=== PATIENT | male | born 1960 | race Caucasian/White ===

== ENCOUNTER 2020-06-17 08:05 | Emergency (ER) | payer BC ==
[2020-06-17] MEDS ORDERED: METOCLOPRAMIDE 10 MG/2mL INJ ONE (08:50)
[2020-06-17] MEDS ORDERED: KETOROLAC 30 MG/ML INJ ONE (08:50)
[2020-06-17] MEDS ORDERED: NA CHLORIDE 0.9% 1,000 ML ONE (08:50)
[2020-06-17] MEDS ORDERED: DIPHENHYDRAMINE 50 MG/ML VIAL ONE (08:50)
--- NOTE | 2020-06-17 09:18 | RAD REPORT ---
EXAM DESCRIPTION: CT - Head Brain Wo Cont - 06/17/2020 8:47 am CLINICAL HISTORY: HEADACHE Headache, drowsiness COMPARISON: No comparisons TECHNIQUE: All CT scans are performed using dose optimization technique as appropriate and may inclu de automated exposure control or mA/KV adjustment according to patient size. FINDINGS: No intracranial hemorrhage, hydrocephalus or extra-axial fluid collection.No areas of brai n edema or evidence of midline shift. The paranasal sinuses and mastoids are clear. The calvarium is intact. IMPRESSION: No acute intracranial abnormality.
[2020-06-17] MEDS ORDERED: dexAMETHasone 10 MG/ML VIAL ONE (10:02)
--- NOTE | 2020-06-17 10:21 | ER ---
Nurse's Notes [facility] Name: Singh Anderson Age: 60 yrs Sex: Male : 1960 Arrival Date: 06/17/2020 Time: 08:07 Bed 8 Private MD: Diagnosis: Headache Presentation: 06/17 08:17 Chief complaint: Patient states: frontal headache started Tuesday evening, has had iw similar headaches in past, last h/a was last year. Coronavirus screen: At this time, the client does not indicate any symptoms associated with coronavirus-19. Ebola Screen: Patient negative for fever greater than or equal to 101.5 degrees Fahrenheit, and additional compatible Ebola Virus Disease symptoms Patient denies exposure to infectious person. Patient denies travel to an Ebola-affected area in the 21 days before illness onset. No symptoms or risks identified at this time. Initial Sepsis Screen: Does the patient meet any 2 criteria? No. Patient's initial sepsis screen is negative. Does the patient have a suspected source of infection? No. Patient's initial sepsis screen is negative. Risk Assessment: Do you want to hurt yourself or someone else? Patient reports no desire to harm self or others. Onset of symptoms was June 15, 2020. 08:17 Method Of Arrival: Ambulatory iw 08:17 Acuity: BONNIE 3 iw Triage Assessment: 08:30 Headache History: The patient has had previous headaches and this one is similar to bp previous episodes. General: Appears in no apparent distress. uncomfortable, obese, Behavior is cooperative, appropriate for age, anxious. Pain: Complains of pain in forehead Pain currently is 7 out of 10 on a pain scale. Pain began 1 day ago. Also complains of photophobia. EENT: No deficits noted. Neuro: Level of Consciousness is awake, alert, obeys commands, Oriented to person, place, time, situation, Appropriate for age. Cardiovascular: Rhythm is sinus rhythm. Respiratory: No deficits noted. GI: No signs and/or symptoms were reported involving the gastrointestinal system. : No signs and/or symptoms were reported regarding the genitourinary system. Derm: No deficits noted. Musculoskeletal: No deficits noted. Historical: - Allergies: 08:19 Codeine; iw 08:19 Levaquin; iw - PMHx: 08:19 Diabetes - NIDDM; iw - PSHx: 08:19 Appendectomy; back; Knee surgery; iw - Immunization history:: Adult Immunizations up to date. - Social history:: Smoking status: Patient denies any tobacco usage or history of. Screenin:46 Abuse screen: Denies threats or abuse. Denies injuries from another. Nutritional bp screening: No deficits noted. Tuberculosis screening: No symptoms or risk factors identified. Fall Risk None identified. Assessment: 08:30 General: SEE TRIAGE NOTE. bp 08:45 Reassessment: PT TO CT. bp 09:00 Reassessment: PT RETURNED FROM CT. ALL CURRENT ORDERS COMPLETE. bp 10:36 Reassessment: PT D/C HOME AMBULATORY, DX WITH MIGRAINE. bp Vital Signs: 08:17 BP 177 / 94; Pulse 73; Resp 16; Temp 98.0; Pulse Ox 98% on R/A; Weight 147.42 kg; iw Height 6 ft. (182.88 cm); Pain 9/10; 08:59 BP 154 / 87; Pulse 72; Resp 18; Pulse Ox 97% ; bp 10:36 BP 135 / 68; Pulse 69; Resp 17; Temp 98; Pulse Ox 98% ; bp 08:17 Body Mass Index 44.08 (147.42 kg, 182.88 cm) iw ED Course: 08:07 Patient arrived in ED. as 08:09 Juventino Brooks NP is PHCP. pm1 08:09 Guille Enamorado MD is Attending Physician. pm1 08:19 Triage completed. iw 08:19 Arm band placed on. iw 08:20 Inserted saline lock: 20 gauge in right antecubital area, using aseptic technique. bp 08:37 Kei Fulton, JAVIER is Primary Nurse. bp 08:46 Patient has correct armband on for positive identification. Bed in low position. Call bp light in reach. Side rails up X2. 08:47 CT Head Brain wo Cont In Process Unspecified. EDMS 10:36 No provider procedures requiring assistance completed. IV discontinued, intact, bp bleeding controlled, No redness/swelling at site. Pressure dressing applied. Administered Medications: 08:45 Drug: TORadol 30 mg Route: IVP; Site: right antecubital; bp 10:38 Follow up: Response: Pain is decreased bp 08:45 Drug: Reglan 10 mg Route: IVP; Site: right antecubital; bp 10:38 Follow up: Response: Pain is decreased bp 08:45 Drug: Benadryl 25 mg Route: IVP; Site: right antecubital; bp 10:38 Follow up: Response: Pain is decreased bp 08:45 Drug: NS 0.9% 1000 ml Route: IV; Rate: 1000 ml; Site: right antecubital; bp 10:37 Follow up: IV Status: Completed infusion; IV Intake: 1000ml bp 09:50 Drug: Decadron - Dexamethasone 10 mg Route: IVP; Site: right antecubital; bp 10:37 Follow up: Response: Pain is decreased bp Intake: 10:37 IV: 1000ml; Total: 1000ml. bp Outcome: 10:20 Discharge ordered by MD. pm1 10:36 Discharged to home ambulatory. bp 10:36 Condition: stable 10:36 Discharge instructions given to patient, Instructed on discharge instructions, follow up and referral plans. medication usage, Demonstrated understanding of instructions, follow-up care, medications, Prescriptions given X 1. 10:38 Patient left the ED. bp Signatures: Dispatcher [employer] Aurora Cazares Irene, RN RN iw Juventino Brooks NP [employer] pm1 Kei Fulton RN RN bp
--- NOTE | 2020-06-17 10:21 | EDPHYS ---
Physician Documentation [facility] Name: Singh Anderson Age: 60 yrs Sex: Male : 1960 Arrival Date: 06/17/2020 Time: 08:07 Bed 8 Private MD: ED Physician Guille Enamorado HPI: 06/17 08:21 This 60 yrs old Male presents to ER via Ambulatory with complaints of pm1 Headache. 08:21 The patient complains of pain to the forehead. The patient describes the headache as pm1 aching, constant. Onset: The symptoms/episode began/occurred 2 day(s) ago. Associated signs and symptoms: Pertinent positives: nausea, Photophobia Pertinent negatives: dizziness, fever, neck stiffness, paresthesias, vision changes, weakness. Severity of symptoms: in the emergency department the pain is unchanged. Headache History: The patient has had previous headaches and this one is similar to previous episodes, and this one is more severe than previous episodes. The symptoms are alleviated by nothing. the symptoms are aggravated by lights, noise. The patient has experienced similar episodes in the past, multiple times. 09:30 Sumatriptan did not work yesterday. did not take any today. Sumatriptan never works for pm1 him. Historical: - Allergies: 08:19 Codeine; iw 08:19 Levaquin; iw - PMHx: 08:19 Diabetes - NIDDM; iw - PSHx: 08:19 Appendectomy; back; Knee surgery; iw - Immunization history:: Adult Immunizations up to date. - Social history:: Smoking status: Patient denies any tobacco usage or history of. ROS: 08:21 Constitutional: Negative for fever, chills, and weight loss, Eyes: Negative for injury, pm1 pain, redness, and discharge, Neck: Negative for injury, pain, and swelling. 08:21 Cardiovascular: Negative for chest pain, palpitations, and edema, Respiratory: Negative for shortness of breath, cough, wheezing, and pleuritic chest pain, Abdomen/GI: Negative for abdominal pain, nausea, vomiting, diarrhea, and constipation, Back: Negative for injury and pain, MS/Extremity: Negative for injury and deformity, Skin: Negative for injury, rash, and discoloration. 08:21 ENT: Positive for bloody nose prior to headache on Tuesday, Negative for drainage from ear(s), ear pain, sore throat, dental pain, difficulty swallowing, difficulty handling secretions, hoarseness. 08:21 Neuro: Positive for headache, Negative for dizziness, numbness, tingling, visual changes, weakness. Exam: 08:21 Constitutional: This is a well developed, well nourished patient who is awake, alert, pm1 and in no acute distress. 08:21 ENT: Nares patent. No nasal discharge, no septal abnormalities noted. Tympanic membranes are normal and external auditory canals are clear. Oropharynx with no redness, swelling, or masses, exudates, or evidence of obstruction, uvula midline. Mucous membranes moist. Neck: Trachea midline, no thyromegaly or masses palpated, and no cervical lymphadenopathy. Supple, full range of motion without nuchal rigidity, or vertebral point tenderness. No Meningismus. 08:21 Back: No spinal tenderness. No costovertebral tenderness. Full range of motion. Skin: Warm, dry with normal turgor. Normal color with no rashes, no lesions, and no evidence of cellulitis. MS/ Extremity: Pulses equal, no cyanosis. Neurovascular intact. Full, normal range of motion. 08:21 Head/face: Sinus tenderness, that is moderate, is located over the right frontal sinus, left frontal sinus and right maxillary sinus. 08:21 Cardiovascular: Exam negative for acute changes, Rate: normal, Rhythm: regular, Pulses: no pulse deficits are appreciated. 08:21 Respiratory: Exam negative for acute changes, respiratory distress, shortness of breath. 08:21 Abdomen/GI: Inspection: obese Palpation: abdomen is soft and non-tender, in all quadrants. 08:21 Neuro: Exam negative for acute changes, Orientation: is normal, Mentation: is normal, Motor: is normal, moves all fours, Gait: is steady, at a normal pace, without difficulty. Vital Signs: 08:17 BP 177 / 94; Pulse 73; Resp 16; Temp 98.0; Pulse Ox 98% on R/A; Weight 147.42 kg; iw Height 6 ft. (182.88 cm); Pain 9/10; 08:59 BP 154 / 87; Pulse 72; Resp 18; Pulse Ox 97% ; bp 10:36 BP 135 / 68; Pulse 69; Resp 17; Temp 98; Pulse Ox 98% ; bp 08:17 Body Mass Index 44.08 (147.42 kg, 182.88 cm) iw MDM: 08:09 Patient medically screened. pm1 08:26 Data reviewed: vital signs. Data interpreted: Pulse oximetry: on room air is 98 %. pm1 Interpretation: normal. 09:28 Counseling: I had a detailed discussion with the patient and/or guardian regarding: the pm1 historical points, exam findings, and any diagnostic results supporting the discharge/admit diagnosis, radiology results, Pain level 7/10. Improved but would like additional medication. 06/17 08:17 Order name: CT Head Brain wo Cont; Complete Time: 09:21 pm1 06/17 08:17 Order name: IV Saline Lock; Complete Time: 08:38 pm1 Administered Medications: 08:45 Drug: TORadol 30 mg Route: IVP; Site: right antecubital; bp 10:38 Follow up: Response: Pain is decreased bp 08:45 Drug: Reglan 10 mg Route: IVP; Site: right antecubital; bp 10:38 Follow up: Response: Pain is decreased bp 08:45 Drug: Benadryl 25 mg Route: IVP; Site: right antecubital; bp 10:38 Follow up: Response: Pain is decreased bp 08:45 Drug: NS 0.9% 1000 ml Route: IV; Rate: 1000 ml; Site: right antecubital; bp 10:37 Follow up: IV Status: Completed infusion; IV Intake: 1000ml bp 09:50 Drug: Decadron - Dexamethasone 10 mg Route: IVP; Site: right antecubital; bp 10:37 Follow up: Response: Pain is decreased bp Disposition: 14:27 Co-signature as Attending Physician, Guille Enamorado MD. rn Disposition: 06/17/20 10:20 Discharged to Home. Impression: Headache. - Condition is Stable. - Discharge Instructions: General Headache Without Cause. - Prescriptions for Fiorinal 50- 325-40 mg Oral Capsule - take 1 capsule by ORAL route every 4 hours As needed - not to exceed 6 capsules per day; 20 capsule. - Medication Reconciliation Form, Thank You Letter, Antibiotic Education, Prescription Opioid Use form. - Follow up: Emergency Department; When: As needed; Reason: Worsening of condition. Follow up: Private Physician; When: 2 - 3 days; Reason: Recheck today's complaints, Continuance of care, Re-evaluation by your physician. - Problem is new. - Symptoms have improved. Signatures: Dispatcher [employer] Neha Nowak, RN Guille Erazo MD MD rn Marinas, Patrick, FARM MANAGEMENT SUPERVISOR FARM MANAGEMENT SUPERVISOR pm1 Kei Fulton RN RN bp Corrections: (The following items were deleted from the chart) 10:38 10:20 06/17/2020 10:20 Discharged to Home. Impression: Headache. Condition is Stable. bp Forms are Medication Reconciliation Form, Thank You Letter, Antibiotic Education, Prescription Opioid Use. Follow up: Emergency Department; When: As needed; Reason: Worsening of condition. Follow up: Private Physician; When: 2 - 3 days; Reason: Recheck today's complaints, Continuance of care, Re-evaluation by your physician. Problem is new. Symptoms have improved. pm1
[2020-06-17 11:05] VITALS: BP 135/68; TEMP 98; O2SAT 98
== END 2020-06-17 10:38 | disposition home or self-care (01) ==
LOC: ER 08:05
DX: R51 Headache (principal); Z88.1 Allergy status to other antibiotic agents; Z88.5 Allergy status to narcotic agent
CPT/HCPCS: 70450; J2765; J1200; J1100; J7030